=== PATIENT | female | born 1930 | race Caucasian/White ===

== ENCOUNTER 2017-03-13 20:08 | Inpatient (IN) | payer MEDICARE, OTHER ==
[~2017-03-13] VITALS: Ht 144.8 cm; Wt 48.4 kg
--- NOTE | 2017-03-13 20:25 | NUR ---
Admit (Direct) Received report from ED RN Christa of [facility], who is brought by rental car ferry driver Ryan via stretcher,Dx NSTEMI after at her PCP office was found to be Sinus tach and in ED junctional tach with + trops, was given adenosine IV and Cardizem oral which returned to SR. She now accompanied by daughter and MD in to assess
[2017-03-13 21:45] VITALS: BP 171/74; PULSE 53; PULSE 61; RESP 18; O2SAT 97
[2017-03-13] MEDS ORDERED: 0.9% Sodium Chloride 1,000 ML IV SCH (22:07)
[2017-03-13] MEDS ORDERED: Atropine 1 mg/10 mL (Code) Syringe IVPUSH PRN (22:10)
[2017-03-13] MEDS ORDERED: Senna-Docusate 8.6-50 mg Tablet PO PRN (22:10)
[2017-03-13] MEDS ORDERED: Alum-Mag Hydrox-Simeth 30 mL Suspension PO PRN (22:10)
[2017-03-13] MEDS ORDERED: Ondansetron 2 mg/mL 2 mL Inj IVPUSH PRN (22:10)
[2017-03-13] MEDS ORDERED: Heparin 5,000 Unit/mL Inj IVPUSH PRN (22:10)
[2017-03-13] MEDS ORDERED: Heparin 25K Unit/500mL 0.45 NS 25,000 UNIT in IV Premix 1 EACH IV SCH (22:10)
[2017-03-13] MEDS ORDERED: Polyethylene Glycol (PEG) 17 Gm Powder PO PRN (22:10)
[2017-03-13] MEDS ORDERED: Heparin 5,000 Unit/mL Inj IVPUSH ONE (22:10)
--- NOTE | 2017-03-13 22:22 | PCM.HPMED ---
Subjective Date of Service Mar 13, 2017 Primary Provider: Admitting Physician: Christiana Ramesh MD Primary Care Physician: [facility] Attending Physician: Christiana Ramesh MD Admit Status: Direct Admit, Full Admit, Remote Telemetry Chief Complaint: Rapid heart rate, elevated troponin History of Present Illness: Is an 86-year-old female who presented to her primary care doctor's office for routine follow-up and was found to have a heart rate of 1:30 in the low blood pressure of systolic of 70. She has no history of any heart problems. She does have intermittent lightheadedness and dizziness. She denied any chest pain. She was transferred to the emergency room and found to be in SVT and did respond to adenosine. She did convert to sinus rhythm. She was started on oral Cardizem. Her EKG after conversion was normal sinus rate of 66 no acute changes noted. Her initial troponin was 0.27 and repeat was 0.79 hands patient was transferred from [facility]. she is scheduled to [facility]. Dr. Hu was notified by [facility] regarding this patient prior to calling hospitals for admission. Review of Systems: The patient denies any fevers chills denies cough all other review of systems are negative except for as in history of present illness. She does have a history of rheumatoid arthritis with significant kyphoscoliosis and her spine and deformities of her hands. Allergies Coded Allergies: Penicillins (Verified Allergy, Unknown, 03/13/17) Sulfa (Sulfonamide Antibiotics) (Verified Allergy, Unknown, 03/13/17) Home Medications celebrex 200 mg by mouth twice a day Folic acid 1 mg by mouth daily Leucovorin 5 mg by mouth once weekly Methotrexate 15 mg by mouth weekly basis Prazosin 2 mg by mouth twice a day Remicade 40 mg IV every 30 days Pearly S 60 mg IM once Nebivolol 5 mg by mouth daily Multiple vitamin 1 tab by mouth daily Olmasartan/ hydrochlorothiazide 20/12.52 tabs by mouth daily PMH Rheumatoid arthritis, osteoporosis, chronic hearing loss, hypertension, COPD Family History Family medical history history of hypertension Social History Hx Alcohol Use: No Hx Tobacco Use: No Smoking Status: Never Smoker Living Arrangement: with Family Exam Vital Signs Vital Sign - Last Date Time Temp Pulse Resp B/P Pulse Ox O2 Delivery O2 Flow Rate FiO2 03/13/17 21:45 36.9 53 18 171/74 97 Room Air Exam Constitutional: Elderly female in no acute distress Head: Normocephalic atraumatic Chest: Clear to auscultation Cor: Regular rate and rhythm S1-S2 without murmur Abdomen: Soft nontender bowel sounds present Extremities: No pedal edema, patient does have significant deformities of her spine. Scoliosis and also ulnar deviation of hand joints secondary to rheumatoid arthritis Skin: No rashes Psych: Mood and affect are appropriate Neuro: Alert and oriented 3, motor strength is intact bilaterally Lab and Diagnostics Labs Troponin as listed above in history of present illness white count 10.4 hemoglobin 12.4 hematocrit 36.9 MCV 108.1 platelets 206 with 8.5 neutrophils and 133 potassium 4.5 chloride 97 bicarbonate 27 anion gap 9.0 BUN 37 creatinine 1.0, calculated GFR 53 glucose 103 calcium 9.0 total bili 0.9 AST 29 ALT 19 alkaline phosphatase 36 troponin initial 0.27 total protein 6.3 albumin 3.5 lipase 34 UA is negative X-Rays, CTs and MRIs Chest x-ray reveals a new left upper lobe possible lung nodule this x-ray was done at [facility] to review the recommend CT of chest 12-lead ECG As noted in history of present illness Assessment & Plan # NSTEMI, acute, present on admission -Sterol IV heparin drip -Check echocardiogram -Continue nuclear pharmacological stress test tomorrow -Check serial troponins -May be due to demand ischemia with SVT and relative hypotension -Initiate atorvastatin #SVT with conversion to sinus rhythm after IV adenosine, acute, present on admission -We will place on telemetry -Check echocardiogram in a.m. -Check TSH in a.m. #Possible left upper lobe nodule, present on admission -We will go ahead and get CT of chest without IV contrast to further elucidate #Rheumatoid arthritis, chronic, present on admission -Continue current medication regimen #DVT prophylaxis -Patient is on therapeutic IV heparin #CODE STATUS -Full code Resuscitation Status: CPR: Attempt Resuscitation Time spent 60 minutes Christiana Ramesh MD Mar 13, 2017 22:22
[2017-03-13] MEDS ORDERED: OLME1TAB40 PO (23:14)
[2017-03-13] MEDS ORDERED: FOLI1TAB18 PO (23:14)
[2017-03-13] MEDS ORDERED: PRAZ2CAP2 PO (23:14)
[2017-03-13] MEDS ORDERED: INFL100V IV (23:14)
[2017-03-13] MEDS ORDERED: NEBI5TAB8 PO (23:14)
[2017-03-13] MEDS ORDERED: MULT-1018 PO (23:14)
[2017-03-13] MEDS ORDERED: CRAN1TAB5 PO (23:14)
[2017-03-13] MEDS ORDERED: CALC-1003 PO (23:14)
[2017-03-13] MEDS ORDERED: METH2.5T PO (23:14)
[2017-03-13] MEDS ORDERED: LEUC10TA PO (23:14)
[2017-03-13] MEDS ORDERED: DENO60DI SQ (23:14)
[2017-03-13] MEDS ORDERED: OLME1TAB PO (23:14)
[2017-03-13] MEDS ORDERED: CELE-67 PO (23:14)
--- NOTE | 2017-03-13 23:22 | NUR ---
Chest CT off floor for CT
[2017-03-14] VITALS (7 sets, daily range): BP systolic 115–159; BP diastolic 52–76; PULSE 49–59; RESP 16–20; O2SAT 92–96
--- NOTE | 2017-03-14 00:02 | NUR ---
Heparin gtt ordered cardiac heparin gtt baseline PTT drawn 2950unit bolus given rate @ 600unit/hr verified with Kennedi Melendez
[2017-03-14] MEDS: Sodium Chloride LOK Flush 10 mL Syringe IVFLUSH SCH ×3 (00:30→17:10)
[2017-03-14 04:31] LABS: BASOPHILS % (AUTO) 0.3 % (0-3); EOSINOPHILS % (AUTO) 2.4 % (0-5); MONOCYTES % (AUTO) 12.2 % (4-12); Mean Corpuscular Hemoglobin 36.2 pg (27.0-35.0); Mean Corpuscular Volume 102.6 fL (81-100); NEUTROPHILS % (AUTO) 53.3 % (40-74); Platelet Count 193 bil/L (150-400)
[2017-03-14 05:04] LABS: Magnesium 1.7 mg/dL (1.6-2.6)
--- NOTE | 2017-03-14 09:11 | NUR ---
Social Work-initial assessment: Data:See initial assessment. Pt is a 86 y/o female who was admitted on 03/13/17 for Non stemi per H&P. Pt's insurance is [facility] and [employer] and PCP is Tammy Angeles at the [facility]. EMR Reviewed. LARISSA met with pt and daughter Yovana at bedside, SW role explained. Pt is alert and oriented x3. Pt resides at home with her daughter Yovana in [place] where she remains independent with ADls. Pt uses a fww at baseline and does drive. pt has had history with [facility] and has no SNF history. Pt has no detention care insurance or VA benefits. SW discussed DPOA/ advanced directive, pt confirms this has been completed, SW encouraged a copy to be brought in. Pt discussed with MD and RN no concerns around pt's capacity for self care, pt has been up independent in her room. SW provided pt and daughter with discharge planning checklist booklet and encouraged them to call with any questions, phone number provided. Pt's daughter confirms she will provide transport home. No anticipated discharge needs. SW will continue to follow if needs arise. Assessment:pt who is independent at baseline. Plan:Pt to discharge home when medically stable via pOV. Pt has support from daughter who lives with her. No anticipated discharge needs. SW will continue to follow if needs arise. MICHAEL Silva Addendum: 03/14/17 at 0916 by BETO WALTON SS Amended: Links added.
--- NOTE | 2017-03-14 10:55 | NUR ---
Case Management: [facility] delivered and explained to patient. Signed original placed in chart. Copy left at bedside. Malka Corea RN
--- NOTE | 2017-03-14 11:37 | NUR ---
Cardiac Heparin Infusion: Heparin PTT 59.5. Increased by 25u to 525u/hr. Recheck Heparin PTT in 6hrs @ 1630. Addendum: 03/14/17 at 1305 by KALEB ROJAS RN Heparin infusion discontinued as per orders.
--- NOTE | 2017-03-14 11:42 | DRSVH ---
PROCEDURE: CT CHEST WITHOUT CONTRAST ([id number]) INDICATIONS: abnormal CXR TECHNIQUE: Noncontrast 5 mm thick sections acquired from the pulmonary apices to the posterior costophrenic angl es. 7 mm thick coronal and sagittal MIP reformats were then acquired. For radiation dose reduction, the following was used: automated exposure control, adjustment of mA and/or kV according to patient size. COMPARISON: None none clinical chest. FINDINGS: Image quality: Excellent. Lungs and pleura: No definite acute air space opacities there is emphysematous change implying a reginald g-standing smoking history and also focal alveolar prominence at the left upper lobe posterolaterally . Stranding is confluent in that area, best seen on series 3 image 12. No pleural effusions or pneu mothorax. Central and peripheral airways are patent and normal in caliber. Mediastinum: Heart size is normal. No pericardial effusion. No mediastinal adenopathy by size crit eria. Thoracic aorta and central pulmonary arteries are normal in size. Esophagus is normal in pura jahaira. No hiatal hernia. Bones and chest wall: No suspicious bony lesions. There is prominent convex-right scoliosis at the mid thoracic spine and compensatory convex leftward scoliosis is prominent at the lumbosacral spine. No definite acute vertebral body compression fractures but there is a moderately severe compression at what appears to be T7 and a mild to moderate superior compression involving the vertebral body of what appears to be T9. No axillary or supraclavicular adenopathy by size criteria. Thyroid gland is not well-seen by this noncontrast technique. Abdomen: Visualized upper abdominal solid organs and bowel loops appear normal in the absence of con trast. IMPRESSION: 1. Emphysematous change implying a long-standing smoking history. Please correlate clinically. 2. The clinical history provided implies an abnormal chest x-ray has been obtained and yet this stud y is not available for review. It would be very helpful to obtain that examination or at least a rep ort from the study presumably performed elsewhere. 3. At the upper outer posterior aspect of the left upper lobe there is an area of alveolar infiltrat ion with stranding that appears confluent and potentially a manifestation of pneumonia. A neoplasm c onceivably could produce this appearance. In the setting of prior smoking history followup is recomm ended with attention to that area in 6 months. 4. There is a prominent convex rightward scoliosis pattern within the chest with convex leftward com pensatory scoliosis within the abdomen. What appears to be the T7 and T9 vertebral bodies are involv ed by significant compression fractures, most pronounced at T7. Chronicity is uncertain. Old compar sandra studies would be very helpful to determine clinical significance of this appearance. The estima cheng degree of height reduction at T7 is 51% when compared to the level immediately below. Please not e that MR scanning can easily differentiate between chronic versus acute compression fractures. Dictated by: Jomar Chan M.D. on 03/14/2017 at 11:34 Approved by: Jomar Chan M.D. on 03/14/2017 at 11:41
[2017-03-14] MEDS ORDERED: INFLIXIMAB IV PRN (11:45)
--- NOTE | 2017-03-14 12:33 | PCM.PNMED ---
Subjective Date of Service Mar 14, 2017 Subjective Feels OK, resting in bed. Can note when her heart rate liana fast, like yesterday, but this does not happen very often. Since admission patient has been somewhat bradycardic, and her Bystolic is held from today. Still on IV heparin. EKG review does not show overt ischemia. No other complaints, CT done, echo done, reults pending. Exam Vital Signs Vital Sign - Last Date Time Temp Pulse Resp B/P Pulse Ox O2 Delivery O2 Flow Rate FiO2 03/14/17 10:49 54 03/14/17 09:01 36.9 16 138/75 95 Room Air Intake and Output 03/13/17 03/13/17 03/14/17 Cumulative From/Thru 15:00 23:00 07:00 03/13/17 21:44 - 03/14/17 06:29 Intake Total 721 ml 721 ml Output Total 850 ml 850 ml Balance -129 ml -129 ml Intake Oral 120 ml 120 ml IV Total 601 ml 601 ml Output Urine Total 850 ml 850 ml Exam Eyes; danyell, eom intact Skin; warm and dry, no rash HENT; adequte hydration, no lesions CV; no murmur, regular 60 Resp; clear anteriorly GI; soft, non acute benign Neuro; CN 2-12 intact no focal neuro deficits Lab and Diagnostics Result Diagram: 03/14/17 1030 03/14/17 0420 X-Rays, CTs and MRIs Chest x-ray reveals a new left upper lobe possible lung nodule this x-ray was done at [facility] to review the recommend CT of chest 12-lead ECG As noted in history of present illness Assessment & Plan # NSTEMI, acute, present on admission, active -verusus Troponin elevation of unknown significance, poa, active -secindary to demand ischemia from the tachycardia -discontinue IV heparin, review stress test patient is doing -Check echocardiogram -order repeat troponins -if stress test low risk consider stopping newly started lipitor #SVT with conversion to sinus rhythm after IV adenosine, acute, present on admission, resolved -We will place on telemetry -Check echocardiogram when results back -TSH normal -resume patient's Bystoltic, watch carefully for any more or increased bradycardia, #Possible left upper lobe nodule, present on admission -review CT when results back #Rheumatoid arthritis, chronic, present on admission -resume medication regimen #DVT prophylaxis -OOB #CODE STATUS -Full codeDisposition -pcp is SASHA Ramirez, or SASHA Angeles VTE Mechanical Devices: Intermittant Pneumatic CD Resuscitation Status: CPR: Attempt Resuscitation Bushra Buck MD Mar 14, 2017 12:33
--- NOTE | 2017-03-14 13:03 | NUR ---
Off Unit: Patient transported to [place] via wheelchair at approx 1300 accompanied by transporter. equipment maintenance technician notified. Denied pain/SOB at time of transport.
--- NOTE | 2017-03-14 13:31 | DRSVH ---
[facility] [address] [place] [address] Echocardiogram Report Name: WENDY PAEZ JStudy Date: 03/14/2017 Height: 57 in Hospital Exam Location: [facility] Weight: 108 lb Gender: Female BSA: 1.4 m2 : 1930 Age: 86 yrs BP: 141/76 mmHg Reason For Study: CHEST PAIN Ordering Physician: Nellie Hassan Performed By: Glenda Bravo Referring Physician: DIANA JEAN Interpretation Summary 1. Normal left ventricular size, wall thickness and systolic function with an estimated EF of 60-65% 2. Normal right ventricular size and systolic function. Mild to moderate tricuspid regurgitation. The estimated RVSP is 53 mm Hg. 3. No evidence for significant valvular pathology There is no old study for comparison Procedure: A two-dimensional transthoracic echocardiogram with color flow and Doppler was performed. The study quality was technically adequate. Images from the parasternal window were difficult to obtain and are suboptimal in quality. There is no prior echocardiogram noted for this patient. The patient was in sinus bradycardia with heart rates between 47 to 57 bpm during the exam. Left Ventricle: The left ventricle is normal in size. There is normal left ventricular wall thickness. The left ventricular ejection fraction is normal. The ejection fraction is estimated to be 60-65%. No obvious wall motion abnormalities appreciated. Assessment of diastolic parameters suggests a pseudonormalization pattern, consistent with elevated filling pressures. Right Ventricle: The right ventricle is normal in size, thickness and function. Atria: The left atrium is moderately dilated. The right atrium is mildly dilated. There is no Doppler evidence for an interatrial shunt. Mitral Valve: The mitral valve leaflets appear thickened, but open well. The mitral valve leaflets appear to open well. There is mild mitral annular calcification. There is mild mitral regurgitation. Aortic Valve: The aortic valve is trileaflet. The aortic valve is mildly calcified. The aortic valve opens well. There is trace aortic regurgitation. Tricuspid Valve: The tricuspid valve leaflets are thin and pliable. There is mild to moderate tricuspid regurgitation. The right ventricular systolic pressure is estimated at least 53 mmHg assuming a right atrial pressure of 15 mm Hg. Pulmonic Valve: The pulmonic valve leaflets are thin and pliable; valve motion is normal. There is mild pulmonic regurgitation. Great Vessels: The aortic root is normal size. The ascending aorta could not be visualized. The aortic arch is normal in size. The pulmonary artery is normal size. The IVC is dilated (diameter is greater than 2.1 cm) and it collapses less than 50% with a sniff. This suggests a high right atrial pressure of 15 mm Hg. Pericardium/ Pleura There is no pericardial effusion. There is no pleural effusion. MMode/2D Measurements & Calculations LVIDd: 3.9 cm RA long axis LVOT diam: 1.9 cm LVIDs: 2.9 cm LA A2 area: 19.7 cm AoV Opening FS: 27.1 % LA A4 area: 21.0 cm RA area EPSS: 0.39 cm LA length (vol) Ao root diam IVSd: 0.82 cm : 15.1 cm LVPWd: 0.76 cm LA vol: 65.6 ml RA vol Ao Arch Diam (Prox LA vol index : 42.3 ml Trans): 2.5 cm RA : 30.6 mm2 IVC diam: 2.2 cm LV white. diameter/BSA LV sys. diameter/BSA RVD1 (basal) RVD2 (mid): 2.4 cm (cm/m^2): 2.8 (cm/m^2): 2.1 Doppler Measurements & Calculations Ao V2 max MV E max jean-pierre MV E/A: 1.1 TR max jean-pierre : 136.2 cm/sec : 83.7 cm/sec Med Peak E' Jean-Pierre : 306.9 cm/sec Ao max PG MV A max jean-pierre TR max PG : 7.4 mmHg : 75.6 cm/sec E/E' med: 13.7 : 37.7 mmHg Ao mean PG MV P1/2t: 67.2 msec Lat Peak E' Jean-Pierre PA V2 max : 76.9 cm/sec LVOT Max Jean-Pierre E/E' lat: 8.8 PA mean PG : 96.4 cm/sec E/e' average PA Accel Time ADAM(I,D): 2.1 cm : 0.07 sec sev ratio MV dec time MV P1/2t max jean-pierre Ao V2 mean LV V1 max PG : 0.23 sec : 90.7 cm/sec MVA(P1/2t): 3.3 cm2 Ao V2 VTI: 32.0 cm LV V1 VTI ADAM(V,D): 2.1 cm2 : 22.7 cm PA V2 mean ADAM indexed to BSA : 55.6 cm/sec (cm^2/m^2): 1.5 Reading Physician:01:30 PM
[2017-03-14] MEDS ORDERED: NEBIVOLOL 5 MG PO SCH ×2 (15:33→17:00)
--- NOTE | 2017-03-14 16:01 | DRSVH ---
PROCEDURE: 1 DAY PHARMACOLOGICAL STRESS TEST Rest and pharmacological stress myocardial perfusion SPECT with gated imaging and ejection fraction RADIOPHARMACEUTICAL: 8.6 mCi Tc-99m tetrafosmin IV at rest and 25.6 mCi Tc-99m tetrafosmin IV at peak effect of pharmacological stress. A [id number] was performed. INDICATIONS: 86-year-old woman with NSTEMI. She has hypertension and history of SVT. TECHNIQUE: Radiopharmaceutical was injected at peak stress test, and also at rest. SPECT images wer e obtained. SPECT myocardial perfusion images were displayed in short axis, horizontal long axis, an d vertical long axis views. Gated images were reviewed using [employer] software. COMPARISON: None. CARDIAC STRESS: A pharmacologic stress test was performed under the supervision of an attending staff, using an infus ion of [employer]. Hemodynamic data: There is normal blood pressure and heart rate response to pharmacologic stress. Symptoms: The patient denied anginal chest pain. Aminophylline: Not needed EKG: No diagnostic changes of ischemia; no ectopy. FINDINGS: Raw data: There is good myocardial uptake of radiotracer. No significant motion artifacts. Left ventricle function: Gated images demonstrate normal left ventricular wall thickening. No segme ntal wall motion abnormalities. No transient ischemic dilation. Left ventricle resting end diastoli c volume is normal. Left ventricle stress ejection fraction is greater than 70%; normal range is abo ve 45%. Myocardial perfusion: There is normal distribution of activity in the right and left ventricular bijan cardium. No fixed or reversible perfusion defects. IMPRESSION: 1. Normal myocardial perfusion images. 2. Normal left ventricular volume and systolic function. 3. No chest pain or diagnostic EKG changes for ischemia. PQRS ATTESTATIONS: Measure 322 - Is this imaging test primarily performed on a low-risk surgery patient for preoperative evaluation within 30 days preceding their low-risk non-cardiac surgery? Low-risk surgery is defined as cardiac or myocardial infarction less than 1%, including (but not limited to) endoscopic pr ocedures, superficial procedures, cataract surgery, and excisional breast surgery: Answer: No Measure 323 - Is this imaging test performed primarily for the monitoring of an asymptomatic patient who had percutaneous coronary intervention on the visit date or within 2 years of the visit date? An swer: No Measure 324 - Is this imaging test performed primarily for the initial detection and risk assessment on an asymptomatic, low coronary heart disease patient? Low CHD risk definition = clinicians should consider the maximum number of available patient factors used to estimate risk based on [place] (A TP III criteria), typically age, gender, diabetes, smoking status, and use of blood pressure medicati on, and integrate age appropriate estimates for missing elements, such as LDL or standard blood press ure. Answer: No Dictated by: Juan Camara M.D. on 03/14/2017 at 15:57 Approved by: Juan Camara M.D. on 03/14/2017 at 16:00
--- NOTE | 2017-03-14 16:39 | PCM.PNMED ---
Subjective Date of Service Mar 14, 2017 Exam Vital Signs Vital Sign - Last Date Time Temp Pulse Resp B/P Pulse Ox O2 Delivery O2 Flow Rate FiO2 03/14/17 12:56 36.4 51 20 154/65 92 Room Air Intake and Output 03/13/17 03/13/17 03/14/17 Cumulative From/Thru 15:00 23:00 07:00 03/13/17 21:44 - 03/14/17 06:29 Intake Total 721 ml 721 ml Output Total 850 ml 850 ml Balance -129 ml -129 ml Intake Oral 120 ml 120 ml IV Total 601 ml 601 ml Output Urine Total 850 ml 850 ml Lab and Diagnostics Result Diagram: 03/14/17 1030 03/14/17 0420 X-Rays, CTs and MRIs Chest x-ray reveals a new left upper lobe possible lung nodule this x-ray was done at [facility] to review the recommend CT of chest 12-lead ECG As noted in history of present illness Assessment & Plan # NSTEMI, acute, present on admission, active -verusus Troponin elevation of unknown significance, poa, active -secindary to demand ischemia from the tachycardia -discontinue IV heparin, review stress test patient is doing -Check echocardiogram -order repeat troponins -if stress test low risk consider stopping newly started lipitor #SVT with conversion to sinus rhythm after IV adenosine, acute, present on admission, resolved -We will place on telemetry -Check echocardiogram when results back -TSH normal -resume patient's Bystoltic tonight, watch carefully overnight for any more or increased bradycardia, #Possible left upper lobe nodule, present on admission -review CT when results back #Rheumatoid arthritis, chronic, present on admission -resume medication regimen #DVT prophylaxis -OOB #CODE STATUS -Full codeDisposition -pcp is SASHA Ramirez, or SASHA Angeles VTE Mechanical Devices: Intermittant Pneumatic CD Resuscitation Status: CPR: Attempt Resuscitation Bushra Buck MD Mar 14, 2017 16:39
[2017-03-14] MEDS: OLMESARTAN PO SCH (17:09)
[2017-03-14] MEDS: HCTZ PO SCH (17:09)
[2017-03-14] MEDS ORDERED: Non-Formulary Medication (Cranberry Conc/C/Bacill Coag (Cranberry Tablet) 1 EACH) PO SCH (20:30)
[2017-03-15] VITALS (10 sets, daily range): BP systolic 140–198; BP diastolic 57–106; PULSE 47–60; RESP 16; O2SAT 92–97
[2017-03-15] MEDS: Sodium Chloride LOK Flush 10 mL Syringe IVFLUSH SCH ×3 (00:30→16:30)
--- NOTE | 2017-03-15 05:28 | NUR ---
NOC activity Pt alert and oriented. Denies chest pain. Reports of mild sob with activity. Currently on RA. Health teaching about relaxation techniques provided. Pt verbalizes understanding with return demo. Telemetry monitoring noted SB 44-50's. pt's VSS and WNL. Afebrile overnight. Intentional hourly rounding and pt has slept most of the night.
[2017-03-15] MEDS: HCTZ PO SCH (08:20)
[2017-03-15] MEDS: OLMESARTAN PO SCH (08:20)
[2017-03-15] MEDS ORDERED: VITAMIN D3 PO SCH (08:30)
[2017-03-15] MEDS ORDERED: HCTZ PO SCH (08:30)
[2017-03-15] MEDS ORDERED: LEUCOVORIN PO SCH (08:30)
[2017-03-15] MEDS ORDERED: CALCIUM CITRATE PO SCH (08:30)
[2017-03-15] MEDS ORDERED: OLMESARTAN PO SCH (08:30)
[2017-03-15] MEDS ORDERED: [UNRECOGNIZED DRUG - OTHER] PO SCH (08:30)
[2017-03-15] MEDS ORDERED: BYSTOLIC PO SCH (17:50)
--- NOTE | 2017-03-15 17:56 | CONS ---
[address] [address] CONSULTATION REPORT PATIENT: WENDY PAEZ : 1930 MR#: [id number] ADMIT: 03/13/2017 JOB ID: [id number] DATE OF SERVICE: 03/15/2017 CHIEF COMPLAINT: I was asked by the hospital team to consult on this patient given findings of an arrhythmia which converted with adenosine and elevated troponins. HISTORY OF PRESENT ILLNESS: The patient is an 86-year-old woman with a past medical history significant for hypertension and rheumatologic issues. According to her primary care provider she does much of her followup with rheumatology. She went to her primary care's office for really a routine followup and was found to have a heart rate of about 130, blood pressure was low. The patient said she felt a little dizzy but this is fairly nonspecific. She had no chest pain, no chest pressure, no increased shortness of breath. She was sent to the [facility] ER where she was given adenosine with conversion of her arrhythmias. 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 At any rate she converted and has maintained sinus rhythm ever since. She did have elevated troponins, but no acute EKG changes, and no chest pain, chest pressure, or shortness of breath. An echocardiogram showed normal LV systolic function, mild to moderate tricuspid regurgitation, as well as an estimated right ventricular systolic pressure of 53 mmHg. She also had stress testing that was interpreted as normal myocardial perfusion images, normal left ventricular volume and systolic function, and she had no chest pain or EKG changes. Today she is doing well. She has gotten up a little bit to walk. She walks with a walker but has not make sure that she feels good walking further. She is continues to deny chest pain, chest pressure. She regularly takes Bystolic along with her other medications. She has never been told that she has a low heart rate. Heart rates have been a bit lower here in the hospital at around the mid 50s. MEDICAL HISTORY/PROBLEM LIST: 1. Hypertension. 2. History of rheumatoid arthritis. 3. COPD and chronic hearing loss. MEDICATIONS: At home included: 1. Celebrex 200 mg b.i.d. 2. Folic acid 1 mg daily. 3. Leucovorin 5 mg by mouth once weekly. 4. Methotrexate 15 mg by mouth on a weekly basis. 5. Prazosin 2 mg b.i.d. 6. Remicade 40 mg IV every 30 days. 7. Bystolic 5 mg by mouth daily. 8. Multi Tess. 9. Olmesartan/hydrochlorothiazide 20/12.5 two by mouth daily. ALLERGIES: No known drug allergies. SOCIAL HISTORY: No tobacco use, no alcohol use. FAMILY HISTORY: No early coronary disease. REVIEW OF SYSTEMS: Overall health: No fevers, night sweats, or weight loss. GI: No problems with ulcers or blood in her stool. : No dysuria, no hematuria. Pulmonary: No increased shortness of breath. Cardiac: As per HPI. Denies chest pain, orthopnea, PND, lower extremity edema. Derm: No rash or skin breakdown. Heme: No easy bruising or bleeding. Neuro: No chronic headaches. Musculoskeletal: She has rheumatoid arthritis which is managed. She walks with a walker. Endocrine: No heat or cold intolerance. Ophtho: No acute vision changes. ENT: No hearing changes, no difficulty swallowing. PHYSICAL EXAMINATION: Blood pressure is 160/90, she is afebrile, heart rate 55, sats are 94% on room air. General: In no acute distress. Speaking in full sentences, without apparent shortness of breath. Head and neck: Normocephalic, atraumatic. Neck: No obvious JV distention. Heart: Regular rate and rhythm. I do not appreciate murmurs, gallops, or rubs. Lungs: Clear. Back: No CVA tenderness to palpation. Abdomen is soft, nondistended. Extremities: Warm. No appreciable edema. Vascular: Carotids without bruits appreciated. Skin: Without breakdown appreciated. Neuro: Alert and interactive. Gait is not tested but she walks with a walker. Ophtho: Vision grossly intact. Hearing: Somewhat decreased hearing. Oral: Mucous membranes moist. EKG: Initial EKG at [facility] shows possible AVNRT with heart rates of 122. Followup EKG shows sinus rhythm overnight again, heart rates more in the 50s. Again, I talked with her primary care provider and she runs in the 60s at their followups. LABORATORIES: Show an H and H 10.8 and 32, platelets of 193,000. Chemistry shows sodium 135, potassium 4.4, chloride and bicarb 103 and 20 respectively, BUN and creatinine 26 and 0.67. Troponins in the range of 0.14 to 0.15. IMAGING: Chest CT showed emphysematous changes. There was a finding in the left upper lobe which needs to have followup by imaging. 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 It broke with adenosine. This could have been going on for some time as I do not think she was symptomatic with palpitations at the time. Blood pressure was somewhat reduced and she was feeling somewhat lightheaded at that time. She had elevated troponins which could be related to the arrhythmias itself. She has not had chest pain, chest pressure, or acute EKG changes. She has low-risk stress testing as well as an echo showing normal LV systolic function. PLAN/RECOMMENDATIONS: 1. Regarding the arrhythmia, and because she has somewhat lower heart rates, we could discharge her on a half dose of her Bystolic as opposed to a full dose, or alternatively could use a low-dose metoprolol instead of the Bystolic. 2. I think if she feels well enough to walk around and wants to go home she could certainly do that. I could see her in followup and we could arrange for a monitor to assess her to see if she has any recurrence of arrhythmias.
--- NOTE | 2017-03-15 18:02 | PCM.PNMED ---
Subjective Date of Service Mar 15, 2017 Subjective Patient was seen and examined at bedside today. Patient denies any chest pain, shortness of breath, nausea, vomiting, diarrhea. Overnight events: Patient did have some bradycardia overnight however has remained asymptomatic. Exam Vital Signs Vital Sign - Last Date Time Temp Pulse Resp B/P Pulse Ox O2 Delivery O2 Flow Rate FiO2 03/15/17 17:34 36.9 56 16 194/88 97 Room Air Intake and Output 03/14/17 03/14/17 03/15/17 Cumulative From/Thru 15:00 23:00 07:00 03/13/17 21:44 - 03/15/17 06:09 Intake Total 516 ml 709 ml 220 ml 2166 ml Output Total 700 ml 275 ml 1825 ml Balance 516 ml 9 ml -55 ml 341 ml Intake Oral 709 ml 200 ml 1029 ml IV Total 516 ml 20 ml 1137 ml Output Urine Total 700 ml 275 ml 1825 ml # Bowel Movements 1 1 Exam Physical Exam: GEN: Patient was awake, alert, responding appropriately to questions HEENT: Pupils equal round and reactive to light, extraocular eye muscles intact , Neck soft supple, trachea midline, nomocephalic/atraumatic CV: +S1/S2, regular rate and rhythm, no murmurs auscultated Respiratory: CTAB, no wheezes, rales, rhonchi GI: +bowel sounds x4, soft, compressible, nontender to palpation EXT: no clubbing, cyanosis, edema, positive lateral splinting of the fingers secondary to arthritis Neuro: Cranial nerves II-XII grossly intact Psych: mood and affect were appropriate IVs and Medications Medications Reviewed: Medications were reviewed in detail Lab and Diagnostics Result Diagram: 03/15/17 0540 03/14/17 0420 X-Rays, CTs and MRIs Chest x-ray reveals a new left upper lobe possible lung nodule this x-ray was done at [facility] to review the recommend CT of chest 12-lead ECG As noted in history of present illness Assessment & Plan 86-year-old female with past medical history of rheumatoid arthritis, osteoporosis, chronic hearing loss, hypertension, COPD who presented to the emergency room in SVT and hypotension who received adenosine and converted to normal sinus rhythm NSTEMI, acute, present on admission, active -Elevated troponin most likely secondary to demand ischemia -IV heparin discontinued for stress test (03/14/17): Stress test was normal - Echocardiogram (03/14/17) showed EF of 60-65%, mild to moderate tricuspid regurg, RVSP 53 mmHg, no evidence for significant valvular pathology -Repeat troponins mildly elevated today yesterday 0.137, today 0.153 -Cardiology consulted (Dr. 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 At this time they recommended restarting the patient's diastolic at half the dose (2.5mg) and close outpatient follow-up -Chest this was negative for consider stopping the newly started Lipitor SVT with conversion to sinus rhythm after IV adenosine, acute, present on admission, resolved -Continue telemetry -Echocardiogram see results above -TSH normal -Resume patient's home by systolic at a reduced milligrams of 2.5 mg daily we will continue to monitor for increased bradycardia Possible left upper lobe nodule versus possible pneumonia, present on admission -This could be secondary to a previous pneumonia patient has a history of a nodule on x-ray we will repeat in 6 months -Less likely pneumonia as the patient has not had a white count or fevers. We will follow-up with a procalcitonin and lactic acid for further workup Rheumatoid arthritis, chronic, present on admission -resume medication regimen DVT prophylaxis -OOB CODE STATUS -Full code -pcp is SASHA Ramirez, or SASHA Angeles Disposition: The patient at this time has been cleared by cardiology stating that her bradycardia is chronic in nature. At this time we will half the patients by systolic to 2.5 mg and continue to monitor her overnight. If the patient's blood pressure remained stable and her heart rate remains stable she will most likely be able to be discharged home tomorrow. She should have close follow-up with her primary care physician and cardiology. There was a 6 mL nodule found on chest CT the patient should follow-up with her PCP for a six- month follow-up chest CT. VTE Mechanical Devices: Intermittant Pneumatic CD Resuscitation Status: CPR: Attempt Resuscitation Michelle Krishnamurthy DO Mar 15, 2017 18:02
--- NOTE | 2017-03-15 19:24 | NUR ---
BLOOD PRESSURE Patient given 2.5 Bistolic at 1800 and at 18:45 BP 140/90, HR 60. Previous BP at 17:33 194/88, 12;58 189/91, and 08:27 160/91. Cardiology has signed off and wants to see as outpatient.
--- NOTE | 2017-03-15 23:26 | NUR ---
Blood Pressure Pt had an elevated bp of 198/106 asymptomatic. notified. Ordered pt's bp to be recheck in a couple of hours. Upon recheck pt's bp runs 188/88. notified, no further orders. Addendum: 03/16/17 at 0539 by JAMES PONCE RN 0440 pt's BP 190/89 and asymptomatic. Telemetry noted no abnormal ektopy. notified. No further orders vandana. Pt denies chest pain, sob, n/v or abd discomfort.
[2017-03-16] MEDS: Sodium Chloride LOK Flush 10 mL Syringe IVFLUSH SCH ×2 (00:30→08:31)
[2017-03-16 01:30] VITALS: BP 194/92; PULSE 57; RESP 16; O2SAT 93
[2017-03-16 04:47] VITALS: BP 190/89; PULSE 53; RESP 17; O2SAT 94
[2017-03-16 06:01] VITALS: PULSE 49
[2017-03-16 06:11] LABS: BASOPHILS % (AUTO) 0.2 % (0-3); EOSINOPHILS % (AUTO) 1.4 % (0-5); MONOCYTES % (AUTO) 9.1 % (4-12); Mean Corpuscular Hemoglobin 35.6 pg (27.0-35.0); Mean Corpuscular Volume 101.8 fL (81-100); Platelet Count 191 bil/L (150-400)
[2017-03-16] MEDS: OLMESARTAN PO SCH (08:22)
[2017-03-16] MEDS: HCTZ PO SCH (08:22)
[2017-03-16 10:35] VITALS: BP 95/57; PULSE 58; RESP 20; O2SAT 97
[2017-03-16 10:39] VITALS: BP 95/57
[2017-03-16 11:31] VITALS: PULSE 57
[2017-03-16] MEDS ORDERED: NEBI2.5T5 PO (11:33)
--- NOTE | 2017-03-16 11:35 | NUR ---
Social Work: Readiness For Discharge Data: EMR reviewed. Patient is on day 3 of hospitalization for Non STEMI. Patient has been deemed medically stable for discharge per MD. Patient will discharge home with daughter. Patient lives in [place] and uses a [facility] at baseline. Patient will likely discharge home with no needs. Transportation will be provided by family. Patient has no additional needs at this time. Assessment: Patient will likely have no needs at time of discharge. Plan: Patient to discharge home with daughter in [place]. Transportation will be provided by family. Patient will likely have no needs. Patient has no additional needs at this time. MICHAEL Salvador
--- NOTE | 2017-03-16 11:37 | PCM.DIMED ---
Discharge Instructions Date of Service Mar 16, 2017 Dates of Hospitalization Mar 13, 2017 at 21:19 Discharge Diagnosis Discharge Diagnosis NSTEMI SVT with conversion to sinus rhythm Possible left upper lobe pneumonia versus possible left upper lobe lung nodule Rheumatoid arthritis Diet Discharge Diet: Heart Healthy Activity Discharge Activity: No restrictions Call your provider Call your provider for: Fever or Chills, Shortness of breath, Chest pain, Weakness (unilateral) Patient Instructions Patient Instructions Your Bystolic has been decreased to 2.5 mg and he should take this medication at this dose. Do not continue taking 5 mg daily. Please remember to take her Benicar twice a day 20 mg/12.5 mg Follow-up plan You will need to follow up with your primary care physician within the next week in order to ensure that your blood pressure is still under control. [facility]-up Provider: [facility] Follow-up with PCP in: 1 week (if an appointment has not been made please call to schedule an appointment) Michelle Krishnamurthy DO Mar 16, 2017 11:37
--- NOTE | 2017-03-16 13:39 | PCM.DC.MED ---
Discharge Summary Date of Service Mar 16, 2017 Dates of Hospitalization Date of Hospital Admission Mar 13, 2017 at 21:19 Date of Discharge: Mar 16, 2017 Providers: Admitting Physician: Christiana Ramesh MD Primary Care Physician: [facility] Attending Physician: Michelle Krishnamurthy DO Diagnosis at Time of Discharge Diagnosis at Time of Discharge NSTEMI SVT with conversion to sinus rhythm Possible left upper lobe pneumonia versus possible left upper lobe lung nodule Rheumatoid arthritis Procedures XRay, CTs & MRIs PROCEDURE: CT CHEST WITHOUT CONTRAST ([id number]) Lungs and pleura: No definite acute air space opacities there is emphysematous change implying a long-standing smoking history and also focal alveolar prominence at the left upper lobe posterolaterally. Stranding is confluent in that area, best seen on series 3 image 12. No pleural effusions or pneumothorax. Central and peripheral airways are patent and normal in caliber. Mediastinum: Heart size is normal. No pericardial effusion. No mediastinal adenopathy by size criteria. Thoracic aorta and central pulmonary arteries are normal in size. Esophagus is normal in caliber. No hiatal hernia. Bones and chest wall: No suspicious bony lesions. There is prominent convex- right scoliosis at the mid thoracic spine and compensatory convex leftward scoliosis is prominent at the lumbosacral spine. No definite acute vertebral body compression fractures but there is a moderately severe compression at what appears to be T7 and a mild to moderate superior compression involving the vertebral body of what appears to be T9. No axillary or supraclavicular adenopathy by size criteria. Thyroid gland is not well-seen by this noncontrast technique. Abdomen: Visualized upper abdominal solid organs and bowel loops appear normal in the absence of contrast. IMPRESSION: 1. Emphysematous change implying a long-standing smoking history. Please correlate clinically. 2. The clinical history provided implies an abnormal chest x-ray has been obtained and yet this study is not available for review. It would be very helpful to obtain that examination or at least a report from the study presumably performed elsewhere. 3. At the upper outer posterior aspect of the left upper lobe there is an area of alveolar infiltration with stranding that appears confluent and potentially a manifestation of pneumonia. A neoplasm conceivably could produce this appearance. In the setting of prior smoking history followup is recommended with attention to that area in 6 months. 4. There is a prominent convex rightward scoliosis pattern within the chest with convex leftward compensatory scoliosis within the abdomen. What appears to be the T7 and T9 vertebral bodies are involved by significant compression fractures, most pronounced at T7. Chronicity is uncertain. Old comparison studies would be very helpful to determine clinical significance of this appearance. The estimated degree of height reduction at T7 is 51% when compared to the level immediately below. Please note that MR scanning can easily differentiate between chronic versus acute compression fractures. Dictated by: Jomar Chan M.D. on 03/14/2017 at 11:34 Approved by: Jomar Chan M.D. on 03/14/2017 at 11:41 ECG 12 Lead As noted in history of present illness Cardiac Echo Impression Echocardiogram Report Name: WENDY PAEZ JStudy Date: 03/14/2017 Interpretation Summary 1. Normal left ventricular size, wall thickness and systolic function with an estimated EF of 60-65% 2. Normal right ventricular size and systolic function. Mild to moderate tricuspid regurgitation. The estimated RVSP is 53 mm Hg. 3. No evidence for significant valvular pathology There is no old study for comparison Reading Physician:01:30 PM Brief History The patient is an 86-year-old female presented from her PCPs office for acute SVT. The patient presented to the emergency room was given adenosine and responded and converted immediately into normal sinus rhythm. The patient was started on oral Cardizem however then the patient started to suffer from hypertension with bradycardia. The patient was found to have an elevated troponin and full cardiology workup was done with an echo showing an EF of 60-65 %, mild to moderate tricuspid regurg, RVSP 53 mmHg, no evidence for significant valvular pathology. The elevated troponins were thought to be secondary to demand ischemia from the patient's SVT, but Cardiology was consulted for further recommendations. 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 The patient remained stable at this time and will be discharged home on Bystolic 2.5 mg daily, Benicar 20 mg/12.5 mg 1 by mouth twice a day. The patient did have a CT scan and it was found that she had a possible pneumonia versus a left upper lobe nodule. This is less likely that this was pneumonia as the patient did not have a white count or fevers and her procalcitonin was negative. The patient states that she has had previous x- rays which showed "shadows" that may be significant with the tumor however they have been unchanged. It is recommended by radiology that the patient have a follow-up chest CT in 6 months to reevaluate. The patient and her daughter both state that they understand and would follow up with their primary care physician. The patient is being discharged home in stable condition. Hospital Course 86-year-old female with past medical history of rheumatoid arthritis, osteoporosis, chronic hearing loss, hypertension, COPD who presented to the emergency room in SVT and hypotension who received adenosine and converted to normal sinus rhythm NSTEMI, acute, present on admission, active -Elevated troponin most likely secondary to demand ischemia -IV heparin discontinued for stress test (03/14/17): Stress test was normal - Echocardiogram (03/14/17) showed EF of 60-65%, mild to moderate tricuspid regurg, RVSP 53 mmHg, no evidence for significant valvular pathology -Repeat troponins mildly elevated today yesterday 0.137, today 0.153 -Cardiology consulted (Dr. 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 At this time they recommended restarting the patient's diastolic at half the dose (2.5mg) and close outpatient follow-up -Discontinue Lipitor as the patient's stress test was negative and lipid panel was negative SVT with conversion to sinus rhythm after IV adenosine, acute, present on admission, resolved -Echocardiogram see results above -TSH normal -Resume patient's home by systolic at a reduced milligrams of 2.5 mg daily secondary to bradycardia Possible left upper lobe nodule versus possible pneumonia, present on admission -This could be secondary to a previous pneumonia patient has a history of a nodule on x-ray we will repeat in 6 months -Less likely pneumonia as the patient has not had a white count or fevers and procalcitonin and lactic acid were both negative. Rheumatoid arthritis, chronic, present on admission -resume medication regimen DVT prophylaxis -OOB CODE STATUS -Full code -pcp is SASHA Ramirez, yenni Angeles Exam Vital Signs (Last) Date Time Temp Pulse Resp B/P Pulse Ox O2 Delivery O2 Flow Rate FiO2 03/16/17 11:31 57 03/16/17 10:39 95/57 03/16/17 10:35 36.4 20 97 Room Air Exam Physical Exam: GEN: Patient was awake, alert, responding appropriately to questions HEENT: Pupils equal round and reactive to light, extraocular eye muscles intact , Neck soft supple, trachea midline, nomocephalic/atraumatic CV: +S1/S2, regular rate and rhythm, no murmurs auscultated Respiratory: CTAB, no wheezes, rales, rhonchi GI: +bowel sounds x4, soft, compressible, nontender to palpation EXT: no clubbing, cyanosis, edema Neuro: Cranial nerves II-XII grossly intact Psych: mood and affect were appropriate Test 03/14/17 04:20 03/14/17 10:30 03/14/17 22:15 03/15/17 05:40 Magnesium Level 1.7mg/dL (1.6-2.6) Triglycerides Level 31mg/dL (0-149) Cholesterol Level 139mg/dL (100-199) LDL Cholesterol, Calculated 71.800mg/dL (0-99) VLDL Cholesterol 6.200mg/dL HDL Cholesterol 61mg/dL (>39) Cholesterol/HDL Ratio 2.28 (0.0-4.4) Thyroid Stimulating Hormone (TSH) 2.310uIU/mL (0.450-4.500) Activated Partial Thromboplast Time 59.5sec (22.8-33.0) Hemoglobin A1c 5.6% (4.8-5.6) Troponin T 0.153ug/L (0.0-0.011) Test 03/16/17 05:49 White Blood Count 12.5th/mm3 (3.8-10.1) Red Blood Count 3.40mil/mm3 (3.90-5.20) Hemoglobin 12.1g/dL (12.0-15.6) Hematocrit 34.6% (35.0-46.0) Mean Corpuscular Volume 101.8fL (81-100) Mean Corpuscular Hemoglobin 35.6pg (27.0-35.0) Mean Corpuscular Hemoglobin Concent 35.0% (32.0-37.0) Red Cell Distribution Width 14.0% (12.3-15.4) Platelet Count 191bil/L (150-400) Neutrophils (%) (Auto) 70.0% (40-74) Lymphocytes (%) (Auto) 19.1% (14-46) Monocytes (%) (Auto) 9.1% (4-12) Eosinophils (%) (Auto) 1.4% (0-5) Basophils (%) (Auto) 0.2% (0-3) Sodium Level 132mEq/L (134-144) Potassium Level 4.0mEq/L (3.5-5.2) Chloride Level 95mEq/L (97-108) Carbon Dioxide Level 25mmol/L (18-29) Blood Urea Nitrogen 14mg/dL (8-27) Creatinine 0.60mg/dL (0.57-1.00) Estimat Glomerular Filtration Rate 136mL/min (>59) Glucose Level 91mg/dL (60-99) Lactic Acid Level 0.9mmol/L (0.4-2.0) Calcium Level 8.6mg/dL (8.5-10.1) Total Bilirubin 0.7mg/dL (0.0-1.2) Aspartate Amino Transf (AST/SGOT) 32U/L (0-50) Alanine Aminotransferase (ALT/SGPT) 16U/L (0-32) Alkaline Phosphatase 38U/L (25-165) Total Protein 5.6g/dL (6.4-8.4) Albumin 3.2g/dL (3.4-5.0) Procalcitonin 0.06ng/mL (0.00-0.08) Discharge Medications Discharge Medications Calcium Citrate/Vitamin D3 (Calcium Citrate +Vit D3 Tablet) 200 Mg Calcium-250 Unit Tablet 1 EACH PO DAILY (Reported) Celecoxib (Celecoxib) 200 Mg Capsule 200 MG PO BID (Reported) Cranberry Conc/C/Bacill Coag (Cranberry Tablet) 1 Each Tablet 1 EACH PO BID ( Reported) Folic Acid (Folic Acid) 1 Mg Tablet 1 MG PO DAILY (Reported) Leucovorin Calcium (Leucovorin Calcium) 10 Mg Tablet 10 MG PO WEEKLY (Reported) Methotrexate Sodium (Methotrexate) 2.5 Mg Tablet 2.5 MG PO WEEKLY (Reported) Multivitamin (Multi Vitamin Daily) 1 Each Tablet 1 EACH PO DAILY (Reported) Nebivolol (Bystolic) 2.5 Mg Tablet 2.5 MG PO DAILY Prescribed by: MICHELLE KRISHNAMURTHY DO Olmesartan/Hydrochlorothiazide (Olmesartan-Hctz 20-12.5 mg Tab) 20 Mg-12.5 Mg Tablet 1 EACH PO BID (Reported) As needed Denosumab (Prolia) 60 Mg/1 Ml Syringe 60 MG SQ DIRECTED PRN PRN For Pain ( Reported) Infliximab (Remicade) 10 Mg/Ml Sdv 100 MG IV DIRECTED PRN PRN For Pain ( Reported) Followup Plan Follow-up plan You will need to follow up with your primary care physician within the next week in order to ensure that your blood pressure is still under control. Discharge Diet: Heart Healthy Discharge Activity: No restrictions Patient Instructions Your Bystolic has been decreased to 2.5 mg and he should take this medication at this dose. Do not continue taking 5 mg daily. Please remember to take her Benicar twice a day 20 mg/12.5 mg Follow-up Provider: [facility] Follow-up with PCP in: 1 week (if an appointment has not been made please call to schedule an appointment) Time spent Greater than 35 minutes copies to: [facility] Precious L DO Mar 16, 2017 13:39
--- NOTE | 2017-03-16 15:41 | NUR ---
Discharge D/C to home with daughter. BP greatly reduced this shift. Discharge packet with instructions, RX, and care notes discussed and provided. Meds returned from drawer. Pt escorted off floor with all belongings in no sign of distress.
== END 2017-03-16 13:55 | disposition home or self-care (01) | DRG 280 ==
LOC: MPC 21:19 → UNDODISIN 03-16 13:43
PROVIDERS: ADMIT Specialist; ATTEND Neuromusculoskeletal Medicine & OMM
DX: I21.4 Non-ST elevation (NSTEMI) myocardial infarction (principal); J18.9 Pneumonia, unspecified organism; I47.1 Supraventricular tachycardia; M06.9 Rheumatoid arthritis, unspecified; R91.1 Solitary pulmonary nodule; Z87.891 Personal history of nicotine dependence